=== PATIENT | female | born 1980 | race African-American/Black ===

== ENCOUNTER 2021-02-04 08:45 | Emergency (ER) | payer SELFPAY | END 2021-02-04 11:00 | disposition home or self-care (01) | LOC: CSHERS 08:45 | DX: R53.83 Other fatigue (principal) | CPT/HCPCS: 36416; 93005 ==

== ENCOUNTER 2022-04-22 09:39 | Emergency (ER) | payer SELFPAY | END 2022-04-22 10:21 | disposition home or self-care (01) | LOC: CSHERS 09:39 | DX: B34.9 Viral infection, unspecified (principal); Z20.822 Contact with and (suspected) exposure to COVID-19 | CPT/HCPCS: 99283; U0003; U0005 ==

== ENCOUNTER 2023-02-07 00:19 | Emergency (ER) | payer SELFPAY ==
[2023-02-07 01:22] LABS: SARS-CoV-2 NAA Rapid Test Not Detected (NotDetected)
== END 2023-02-07 01:36 | disposition home or self-care (01) ==
LOC: CSHERS 00:19
DX: B34.9 Viral infection, unspecified (principal); Z20.822 Contact with and (suspected) exposure to COVID-19
CPT/HCPCS: 87081; 87430; 99283